=== PATIENT | female | born 1960 | race Caucasian/White ===

== ENCOUNTER → 2017-02-05 | Day surgery (SDC) | payer OTHER ==
[~2017-02-05] MED LIST: BUPIVACAINE HCL PF 0.75% 30 ML VIAL ONE; ENOX150P SC; EPINEPHrine HCL (1:1000) 30 MG/30 ML VIAL OTHER ONE; KETOROLAC TROMETHAMINE 30 MG/ML (IVP) VIAL IV PUSH ONE; LACTATED RINGER'S 1000 ML INJ 1,000 ML ONE; LIDOCAINE 1.5%/EPINEPHrine 1:200,000 PF SOLN 30 ML AMP ONE; LORA-474 PO; MIDAZOLAM HCL 5 MG/ML VIAL (1 ML) ONE; ONDANSETRON HCL 4 MG/2 ML VIAL IV PUSH ONE; OXYC15TA3 PO; OXYC20TA26; PROM25SU8 PO; PROPOFOL 500 MG/50 ML BTL IV ONE; SYNT25TA; ceFAZolin 2 GM PREMIX 50 ML ONE
--- NOTE | 2017-02-08 08:10 | MP ---
cc: MAIRA NULL DATE OF SURGERY: 02/05/2017 PREOPERATIVE DIAGNOSIS Right shoulder rotator cuff tear. Right shoulder impingement syndrome. Right shoulder labral tear. 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 POSTOPERATIVE DIAGNOSIS Right shoulder rotator cuff tear. Right shoulder impingement syndrome. Right shoulder labral tear. 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 PROCEDURE Right shoulder arthroscopic rotator cuff repair. Right shoulder arthroscopic subacromial decompression. Right shoulder arthroscopic extensive debridement of glenohumeral joint to include the labrum, biceps and chondroplasty of the glenohumeral joint, arthroscopic removal of chondral loose bodies from the glenohumeral joint. SURGEON Dr. Maira Null. QUALITY OFFICER Maira Quinones PA-C. ANESTHESIA General with an interscalene block. ESTIMATED BLOOD LOSS Less than 10 cc. COMPLICATIONS None. IMPLANTS USED Arthrex. JUSTIFICATION This patient is a 56-year-old female with a history of progressive pain in regards to her right shoulder with failed conservative treatment. Clinical exam as well as MRI confirmed the above-named findings. The patient was counseled as to the risks, benefits and alternatives to the above-named proposed surgical procedure. She did wish to proceed with surgery. PROCEDURE IN DETAIL Written consent was obtained. The patient was identified by name, taken to the operating room and placed supine on the operating table. General anesthesia was administered as well as two grams of IV Ancef. The patient was carefully turned to a left lateral decubitus position. A lateral arm roll was placed. All bony prominences and pressure points were well-padded. The patient's neck was carefully monitored and kept neutral. An arthroscopic arm hernandez was gently applied to the right upper extremity with 10 pounds of traction placed. The right shoulder was prepped and draped using isopropyl alcohol, Hibiclens solution and DuraPrep solution. After a timeout was performed a standard posterior and anterior glenohumeral arthroscopic portal was established. The glenohumeral joint revealed evidence of significant labral tearing along the anterior, superior and posterior portions and also evidence of partial tearing of the biceps tendon. An arthroscopic shaver was introduced in the anterior portal and extensive debridement of the biceps was performed. Extensive debridement along the labrum was performed from the anterior 3 o'clock position up to the superior 12 o'clock position and back down to the posterior 9 o'clock position. There was evidence of significant chondromalacia of the glenohumeral joint involving both the glenoid and humerus and a chondroplasty of these areas was performed. There is a large chondral loose body within the glenohumeral joint which was also removed with an arthroscopic grasper. Attention was turned to the subacromial space was evidence of impingement with bursitis. An arthroscopic shaver was introduced from a lateral portal. A subacromial decompression was performed. The shaver was used to perform an extensive bursectomy. An arthroscopic bur was used to perform an acromioplasty and the cautery device was used to release the coracoacromial ligament. There was evidence of full-thickness tear along the rotator cuff and supraspinatus tendon. An arthroscopic bur was used to decorticate the greater tuberosity in preparation for rotator cuff tendon repair. An arthroscopic Scorpion device used to shuttle #2 FiberTape suture in a horizontal mattress pattern through the torn tendon. A #2 FiberLink suture was placed along the far anterior portion as well. The sutures were then placed through the eyelet of an Arthrex 4.75 mm Bio-SwiveLock anchor. The anchor was then inserted into the greater tuberosity. After appropriate tensioning of sutures there was good purchase and fixation. After insertion of the anchor the rotator cuff repair was probed and noted to have good stability and fixation. At the conclusion of the surgical procedure the arthroscopic portals were closed with 3-0 Prolene suture. Sterile dressings were applied. The patient was placed in a sling and swathe immobilizer. He tolerated the procedure well with no intraoperative complications noted. Maira Quinones, physician esl instructional assistant certified, was present during the entire procedure to include patient positioning and the procedure itself. The medical necessity of a physician esl instructional assistant was indicated in this case due to the complexity of the procedure. He assisted with proper manipulation of the arm and also manipulation of the camera. He assisted with shuttling of the sutures and also implantation of the suture anchor. MD CARIN Ellis/RYLIE /9:59 AM /7:36 AM
== END | disposition home or self-care (01) ==
LOC: ESDC 07:05
PROVIDERS: ATTEND Orthopaedic Surgery Sports Medicine
DX: M75.121 Complete rotator cuff tear or rupture of right shoulder, not specified as traumatic (principal); M75.41 Impingement syndrome of right shoulder; S43.491A Other sprain of right shoulder joint, initial encounter; M94.211 Chondromalacia, right shoulder
CPT/HCPCS: 01630; 01991; 29823; 29826; 29827; 64417; C1713; J0690; J1885; J2250; J2405; J7120; J0171